=== PATIENT | male | born 1985 | race Caucasian/White ===

== ENCOUNTER 2022-02-08 15:19 | Outpatient (CLI) | payer BC, SELFPAY ==
--- NOTE | 2022-02-08 15:30 | MR_ITS ---
[facility] [address] [facility] [address] Phone:?[phone] Fax:?[phone] Referring Physician Information: Zaire White M.D. [address] [place] [id number] Phone:?[phone] Fax:?[phone] Patient:?Compa Diaz D.O.B:?1985 Sex:?Male Phone:?[phone] [facility] MRN:?[id number] Exam Date:?02/08/2022 ? EXAM: MRI of the LEFT KNEE, without contrast CLINICAL INFORMATION: Male, 36 years old, with left knee pain. INDICATION: Evaluate for meniscal tear. PRIOR SURGERY: History of knee arthroscopy. PLAIN FILMS: None available. COMPARISONS: Left knee MRI dated 02/24/2002. TECHNICAL INFORMATION: Using a 1.5T MR scanner and a localizing surface coil: sagittals: PD, PDFS coronals: PD, STIR axials: PD, T2FS SEDATION: None CONTRAST: None FINDINGS: Knee joint: Effusion: Small left knee effusion. Popliteal cyst: Tiny, unruptured popliteal (Giordano's) cyst. Loose bodies: None. Subcutaneous and extra-articular soft tissues: Mild anterior subcutaneous soft tissue swelling extending from the patella to the tibial tubercle. Ligaments: ACL: Intact ACL anteromedial and posterolateral bundles, without sprain or tear. PCL: Intact PCL, without acute or chronic injury. MCL: Mild thickening involving the proximal one third of the superficial MCL, without MCL tear (coronal PD series 7 image 20). LCL: Intact LCL, without injury. Posterolateral corner: No posterolateral corner soft tissue injury. Popliteus, biceps femoris, iliotibial band, popliteofibular ligament and lateral gastrocnemius are intact. Posteromedial corner: No posteromedial corner soft tissue injury. Semimembranosus, pes anserine tendons and posterior oblique ligament are without injury, tendinopathy or bursitis. Extensor mechanism: Patellar tendon: Intact, without tendinopathy. Quadriceps tendon: Intact, without tendinopathy. Retinacula: Medial and lateral retinacula are intact. Fat pads: Low signal intensity foci within Hoffa's fat pad reflects scarring from prior arthroscopy. Medial compartment: Medial meniscus: Markedly diminutive appearance of the posterior horn and body segments, in keeping with prior partial meniscectomy. There is also evidence of a posterior root repair. The meniscus is diminutive at the posterior root repair site, but appears to remain at least partially intact. However, meniscal extrusion measures 4 mm. Apical free edge and undersurface fraying is present throughout the posterior horn and body remnants, without more well-defined meniscal tear. No parameniscal cyst. Medial femoral condyle & tibial plateau: Broad-based mild grade II chondromalacia throughout the central, weightbearing aspect of the medial compartment, with minimal marginal osteophytosis and mild reactive osseous changes. Lateral compartment: Lateral meniscus: No articular surface, meniscosynovial junction or root tear. No displacement, extrusion or parameniscal cyst. Lateral femoral condyle: No chondromalacia or osteochondral abnormality. Lateral tibial plateau: No chondromalacia or osteochondral abnormality. Patellofemoral joint: Patella: Mild signal heterogeneity, surface irregularity, and thinning of the articular cartilage without full-thickness chondral loss or reactive osseous changes. Trochlea: No chondromalacia or osteochondral abnormality. Proximal tibiofibular joint: Unremarkable, without evidence of ligament sprain injury, joint effusion or adjacent marrow edema. Bones: Mild edema-like signal is present within the tibial eminence (coronal STIR series 8 image 20). IMPRESSION: 1. Status post partial medial meniscectomy and medial meniscal posterior root repair. The meniscus is diminutive at the repair site, but appears to remain at least partially intact. However, there is 4 mm of meniscal extrusion and apical free edge and undersurface fraying of the posterior horn and body remnants. 2. Minimal osteoarthritis of the medial compartment. 3. Small knee joint effusion with a tiny, unruptured Giordano cyst and mild anterior subcutaneous soft tissue swelling. 4. Chronic sequela of a low-grade proximal MCL sprain, without tear. No ACL, PCL, or LCL sprain/tear. 5. Mild contusion versus low-grade stress changes of the tibial eminence, without evidence of a fracture. 6. No lateral meniscal tear. 7. No significant osteochondral abnormality of the lateral or patellofemoral compartment. BC Electronically signed on 02/11/2022 7:24:00 AM by Geoffrey Munguia M.D.
== END 2022-02-08 15:20 | disposition home or self-care (01) ==
PROVIDERS: Visit Provider Orthopaedic Surgery
DX: M25.562 Pain in left knee (principal); M25.462 Effusion, left knee; S83.412A Sprain of medial collateral ligament of left knee, initial encounter; M23.222 Derangement of posterior horn of medial meniscus due to old tear or injury, left knee
CPT/HCPCS: 73721